=== PATIENT | female | born 1990 | race Caucasian/White ===

== ENCOUNTER 2022-12-18 18:52 | Emergency (ER) | payer OTHER, BC | END 2022-12-18 19:30 | disposition home or self-care (01) | LOC: LL.ED 18:52 | DX: S62.633A Displaced fracture of distal phalanx of left middle finger, initial encounter for closed fracture (principal); Z88.5 Allergy status to narcotic agent; Z88.7 Allergy status to serum and vaccine; W23.0XXA Caught, crushed, jammed, or pinched between moving objects, initial encounter | CPT/HCPCS: 73140-F2; 99283 ==